=== PATIENT | female | born 1955 | race Caucasian/White ===

== ENCOUNTER 2021-09-15 15:13 | Inpatient (IN) | payer OTHER ==
[~2021-09-15] VITALS: Ht 160 cm; Wt 122.1 kg
[2021-09-15 15:15] VITALS: BP 132/60
[2021-09-15] MEDS ORDERED: SINGULAIR 10 MG10 M1 PO (16:59)
[2021-09-15] MEDS ORDERED: PREGABALIN25 MG PO (16:59)
[2021-09-15] MEDS ORDERED: CARVEDILOL6.25 M1 PO (17:00)
[2021-09-15] MEDS ORDERED: CETIRIZINE HCL10 MG PO (17:00)
[2021-09-15] MEDS ORDERED: FUROSEMIDE 20 M20 M1 PO (17:01)
[2021-09-15] MEDS ORDERED: DULOXETINE HCL60 MG PO (17:01)
[2021-09-15] MEDS ORDERED: LEVOTHYROXINE137 MCG PO (17:01)
[2021-09-15] MEDS ORDERED: POTASSIUM CHLO10 ME1 PO (17:02)
--- NOTE | 2021-09-15 17:03 | NUR ---
PT TO ED FOR SOA ONSET Y/D. PT SEES DR CRUZ AND HAD CXR DONE TODAY, HE SENT PT IN FOR ADMIT AND CT. PT DENIES CP. COVID VACCINATED. DENIES FEVER
[2021-09-15 17:06] LABS: ABSOLUTE NEUTROPHILS 10.8 thou/uL (1.4-8.2); BASOPHILS 0.9 % (0.0-2.0); EOSINOPHILS 0.1 % (0.0-3.0); HEMATOCRIT 38.8 % (37.0-47.0); HEMOGLOBIN 12.8 gm/dL (12.0-15.0); LYMPHOCYTES 11.1 % (24.0-44.0); MCHC 33.1 g/dL (28.0-37.0); MCV 96.7 fL (80.0-100.0); POLYS 83.9 % (36.0-66.0); RBC 4.01 mil/uL (4.20-5.00); RDW 13.6 % (10.5-14.5); WBC 12.9 thou/uL (4.0-11.0)
[2021-09-15 17:20] LABS: CALCIUM 9.1 mg/dL (8.5-10.1); CREATININE 0.8 mg/dL (0.6-1.0); POTASSIUM 4.2 mmol/L (3.5-5.1)
[2021-09-15 17:23] LABS: APTT 24.8 Seconds (24.5-32.8); D-DIMER 0.9 ug/mLFEU (0.19-0.50); INR 0.96; PROTIME 10.5 Seconds (10.5-12.1)
[2021-09-15 17:30] LABS: ALBUMIN 3.6 g/dL (3.4-5.0); TOTAL BILIRUBIN 0.6 mg/dL (0.2-1.0); TOTAL PROTEIN 7.3 g/dL (6.4-8.2)
[2021-09-15 17:42] LABS: PLATELET COUNT 299 thou/uL (150-400)
[2021-09-16 06:18] LABS: HEMATOCRIT 36.3 % (37.0-47.0); HEMOGLOBIN 12.3 gm/dL (12.0-15.0); MCH 32.7 pg (26.0-34.0); MCHC 33.8 g/dL (28.0-37.0); MCV 96.6 fL (80.0-100.0); RBC 3.76 mil/uL (4.20-5.00); RDW 13.7 % (10.5-14.5); WBC 8.5 thou/uL (4.0-11.0)
[2021-09-16 06:54] LABS: POTASSIUM 3.7 mmol/L (3.5-5.1)
--- NOTE | 2021-09-16 07:54 | NUR ---
RT AT BEDSIDE COMPLETING TX.
[2021-09-16 08:40] VITALS: BP 128/62
--- NOTE | 2021-09-16 10:03 | EKG ---
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 david : 1955 Requested By: Regino Ponce Order Number: [id number] MD: Sameer French Measurements Intervals [place] Rate: 80 P: 51 PA: 175 QRS: 47 QRSD: 103 T: 37 QT: 397 QTc: 458 Interpretive Statements Sinus rhythm RSR' in V1 or V2, right VCD Baseline wander in lead(s) V1,V3 No previous ECG available for comparison Electronically Signed On 09-16-2021 7:49:21 STEEL RIGGER by Sameer French [email or web address] <ELECTRONICALLY SIGNED> By: Sameer French MD, [facility] 09/16/21 0749 D: [id number] Sameer French MD, FACC /EPI
--- NOTE | 2021-09-16 14:12 | NUR ---
PT ADMITTED RELATED TO PNEUMONIA. CM REVIEWED CHART AND SPOKE WITH CARE TEAM. CM ATTEMTPED PC TO PT ON HER CELL PHONE BUT GOT VM. CM CALLED PT'S DTR LILA HANSEN . SHE INDICATED THAT HE MOM LIVES IN A HOUSE ALONE WITH 1 STEP TO ENTER AND FULL FLIGHT TO BASEMENT. DTR INDICATED THAT MOM HAD BEEN INDEPDNENT WITH GAIT AND [facility] SALES. HAS A CPAP FOR HOME USE. SEES JOB SPOTTER YU BECKWITH AND DR. PEPE. DTR INDICATED SHE ANTICIAPTES PT RETURNING HOME ONCE MEDICALLY STABLE. SHE INQUIRED ABOUT ASSISTANCE IN THE HOME (CLEANING). CM EXPLAINED HH COVERED BY INSURANCE HCBS HOMEMAKER SERVICES POSSIBLE THROUGH HER [place]OM[place] MEDICA[place] IF SHE QUALIFIES. CM INDICATED CM WOULD DISCUSS WITH PT AND COULD COMPLETE ONLINE REFERRAL FOR HCBS IF SHE IS AGREEABLE PRIOR TO DC. CM FOLLOWING REGARDING DC PLANNING.
--- NOTE | 2021-09-16 19:17 | NUR ---
RECIEVED REPORT FROM RN, ROUNDED ON PT AND ATTEMPTED TO INTRODUCE SELF, PT APPEARS TO BE RESTING QUIELTY IN BED, PT WAS NOT DISTURBED. THIS RN WILL ATTEMPT TO INTRODUCE SELF ON NEXT ROUNDING
[2021-09-16 22:58] VITALS: BP 116/64
[2021-09-16 23:18] VITALS: BP 124/51
[2021-09-17 03:04] VITALS: BP 117/74
--- NOTE | 2021-09-17 05:13 | NUR ---
ASSESSMENTS CHARTED, MEDS CHARTED GIVEN. PATIENT ARRIVED FROM ED HOLDING ONTO UNIT AT 23:20. SETTLED INTO ROOM PLACED ON TELEMETRY AND ADMITTED INTO SYSTEM. PATIENT REQUESTING A COUGH SUPPRESENT AND PAIN PILL. SPOKE WITH SHAY NIELSON PATIENT HAS ALREADY TRIED OUR OTHER COUGH SUPPRESENTS WITHOUT SUCCESS. SHE DID GIVE A PAIN MED. PATIENT WOULD LIKE THE COUGH SUPPRESENT AT NIGHT AND THE EXPECTORANT DURING THE DAY.
[2021-09-17 07:40] VITALS: BP 122/61
--- NOTE | 2021-09-17 11:13 | NUR ---
SPIRITUAL CARE CONSULT [id number] WAS COMPLETED BY THIS VICE CHAIRMAN. I FIRST MET THE THE PATIENT IN E.D. 170-6 ON 09/16/21. SHE WAS DOING MUCH BETTER TODAY IN CCU ON THE OXYGEN MASK.
[2021-09-17 11:15] VITALS: BP 146/82
--- NOTE | 2021-09-17 11:47 | NUR ---
RD consult received. Pt admit with pneumonia. Class III obesity, BMI 46.8. Hx COPD, +tobacco use. Upon visit, pt sleeping with CPAP mask so did not disturb. Has heart healthy diet ordered. Presents low nutrition risk.
[2021-09-17 15:45] VITALS: BP 120/71
--- NOTE | 2021-09-18 05:00 | NUR ---
ASSESSMENTS CHARTED, MEDS CHARTED GIVEN. PATIENT RESTING IN BED DURING SHIFT. PATIENT WANTING TO SLEEP DURING SHIFT. EXHAUSTED AND SORE FROM COUGHING. PATIENT WAS ABLE TO SLEEP MOST OF THE SHIFT WITH MINOR COUGHING JAGS. UP AT ZARINA IN ROOM. ABX AND STEROID THERAPY TO CONTINUE.
[2021-09-18 05:01] VITALS: BP 126/86
[2021-09-18 07:14] VITALS: BP 123/79
[2021-09-18 11:32] VITALS: BP 140/75
[2021-09-18 16:00] VITALS: BP 131/74
--- NOTE | 2021-09-18 16:44 | NUR ---
CHART REVIEWED AND DISCUSSED WITH CARE TEAM. SW SUBMITTING REFERRAL FOR HCBS PER PT REQUEST. DEPARTMENT OF HEALTH AND SERVICES ONCE RECEIVED THE REFERRAL WILL REACH OUT TO PT TO SCHEDULE IN HOME ASSESSMENT. NO FURTHER CM INTERVENTIONS INDICATED AT THIS TIME.
[2021-09-18 19:50] VITALS: BP 118/67
[2021-09-19 03:51] VITALS: BP 127/74
--- NOTE | 2021-09-19 07:24 | NUR ---
PATIENT CARES ASSUMED AT SHIFT CHANGE, PATIENT ASSESSED AND MEDS PASSED. PATIENT SPENT THE FIRST FOUR HOURS EATING SNACK FOOD. NURSING DID REDIRECTED HER THINKING FOR BED. PATIENT TUCKED IN WITH A HOT BLANKET, ROUNDS DONE. THE BED IS IN A LOW AND LOCKED POSITION.
[2021-09-19 07:39] LABS: MCH 32.3 pg (26.0-34.0); MCHC 33.5 g/dL (28.0-37.0); MCV 96.3 fL (80.0-100.0); RBC 3.74 mil/uL (4.20-5.00); WBC 10.3 thou/uL (4.0-11.0)
[2021-09-19 07:49] LABS: CALCIUM 9.2 mg/dL (8.5-10.1); CREATININE 0.9 mg/dL (0.6-1.0); POTASSIUM 4.6 mmol/L (3.5-5.1)
[2021-09-19 08:18] VITALS: BP 146/73
[2021-09-19 11:00] VITALS: BP 145/61
[2021-09-19 16:05] VITALS: BP 154/79
--- NOTE | 2021-09-19 16:36 | NUR ---
CHART REVIEWED AND DISCUSSED [facility] CARE TEAM. PT WILL DC WITH NO NEEDS. TO QUALITY FOR HOME O2 PT WILL NEED A EXER OX AND HAVE ROOM AIR O2 SAT LESS THAN 88% OR BELOW. SHOULD PT DISCHARGE OVER THE WEEKEND AND NEED OXYGEN PLEASE FAX FACE SHEET, O2 ORDER, AND EXER OX REPORT TO JAIRON AT [phone] PHONE NUMBER IS [phone]. PLEASE CALL [facility] TO PROVIDE PT WITH OXYGEN TANK FOR TRANSFER HOME.
[2021-09-19 20:15] VITALS: BP 148/86
[2021-09-20 04:20] VITALS: BP 127/68
--- NOTE | 2021-09-20 07:23 | NUR ---
SLEPT MOST OF SHIFT. WORKING ON GOALS AND PLAN OF CARE FOR NOC. UP AD ZARINA TO ROOM. MILD COUGH STATING IT IS BETTER.
[2021-09-20 07:30] VITALS: BP 138/74; BP 144/85
[2021-09-20 12:00] VITALS: BP 154/83
[2021-09-20 16:00] VITALS: BP 136/87
[2021-09-20 19:24] VITALS: BP 139/76
[2021-09-21 03:41] VITALS: BP 145/86
--- NOTE | 2021-09-21 06:00 | NUR ---
ASSESSMENTS CHARTED, MEDS CHARTED GIVEN. PATIENT RESTING IN BED DURING SHIFT. WEARING CPAP DURING NIGHT. UP AT ZARINA IN ROOM. COUGH IS PRODUCTIVE. CONTINUING CARE.
[2021-09-21 07:20] VITALS: BP 127/73
[2021-09-21] MEDS ORDERED: PREDNISONE 20 M20 M1 PO (10:20)
[2021-09-21] MEDS ORDERED: MUCINEX600 MG PO (10:20)
[2021-09-21] MEDS ORDERED: DALMANE15 MG PO (10:20)
[2021-09-21] MEDS ORDERED: CEFUROXIME500 MG PO (10:20)
[2021-09-21] MEDS ORDERED: IPRAT-ALBUT 0.5-3 ML INH (10:20)
[2021-09-21] MEDS ORDERED: HYDROCODONE-CH115 ML PO (10:20)
[2021-09-21] MEDS ORDERED: GUAIFENESIN DM S5 ML PO (10:20)
[2021-09-21] MEDS ORDERED: ACETAMINOPHEN325 M1 PO (10:20)
[2021-09-21 11:10] VITALS: BP 154/74
[2021-09-21 11:36] VITALS: BP 127/73
--- NOTE | 2021-09-21 13:04 | NUR ---
PATIENT HAS BEEN SAFELY DISCHARGED HOME WITH FAMILY. IV WAS REMOVED AND IN NO ACUTE DISTRESS.
== END 2021-09-21 14:31 | disposition home or self-care (01) | DRG 193 ==
LOC: ER 15:13 → EROBS 19:03 → 2N 19:03
PROVIDERS: Emergency Medicine; Nurse Practitioner Family; ADMIT Hospitalist; ATTEND Hospitalist
PROC: 5A09357 Assistance with Respiratory Ventilation, Less than 24 Consecutive Hours, Continuous Positive Airway Pressure (ICD-10-PCS; principal; 2021-09-16)
PROC: 5A09357 Assistance with Respiratory Ventilation, Less than 24 Consecutive Hours, Continuous Positive Airway Pressure (ICD-10-PCS; 2021-09-17)
PROC: 5A09357 Assistance with Respiratory Ventilation, Less than 24 Consecutive Hours, Continuous Positive Airway Pressure (ICD-10-PCS; 2021-09-18)
PROC: 5A09457 Assistance with Respiratory Ventilation, 24-96 Consecutive Hours, Continuous Positive Airway Pressure (ICD-10-PCS; 2021-09-19)
DX: J18.9 Pneumonia, unspecified organism (principal); J96.01 Acute respiratory failure with hypoxia; R65.11 Systemic inflammatory response syndrome (SIRS) of non-infectious origin with acute organ dysfunction; J44.1 Chronic obstructive pulmonary disease with (acute) exacerbation; J44.0 Chronic obstructive pulmonary disease with (acute) lower respiratory infection; Z68.42 Body mass index [BMI] 45.0-49.9, adult; E78.5 Hyperlipidemia, unspecified; G47.33 Obstructive sleep apnea (adult) (pediatric); Z20.822 Contact with and (suspected) exposure to COVID-19; F41.9 Anxiety disorder, unspecified; F32.9 Major depressive disorder, single episode, unspecified; M19.90 Unspecified osteoarthritis, unspecified site; E89.0 Postprocedural hypothyroidism; R91.1 Solitary pulmonary nodule; I10 Essential (primary) hypertension; E66.01 Morbid (severe) obesity due to excess calories; Z79.899 Other long term (current) drug therapy; Z28.21 Immunization not carried out because of patient refusal; Z85.850 Personal history of malignant neoplasm of thyroid; Z90.710 Acquired absence of both cervix and uterus; Z80.8 Family history of malignant neoplasm of other organs or systems
CPT/HCPCS: 10081

== ENCOUNTER → 2021-09-15 | Outpatient (CLI) | payer OTHER ==
[~2021-09-15] MED LIST: ACETAMINOPHEN325 M1 PO; CARVEDILOL6.25 M1 PO; CEFUROXIME500 MG PO; CETIRIZINE HCL10 MG PO; DALMANE15 MG PO; DULOXETINE HCL60 MG PO; FUROSEMIDE 20 M20 M1 PO; GUAIFENESIN DM S5 ML PO; HYDROCODONE-CH115 ML PO; IPRAT-ALBUT 0.5-3 ML INH; LEVOTHYROXINE137 MCG PO; MUCINEX600 MG PO; POTASSIUM CHLO10 ME1 PO; PREDNISONE 20 M20 M1 PO; PREGABALIN25 MG PO; SINGULAIR 10 MG10 M1 PO
== END ==
LOC: RAD 12:17
PROVIDERS: ATTEND Pediatrics
DX: R91.8 Other nonspecific abnormal finding of lung field (principal); I51.7 Cardiomegaly; R06.02 Shortness of breath

== ENCOUNTER 2021-10-06 11:38 | Emergency (ER) | payer OTHER ==
[~2021-10-06] VITALS: Ht 160 cm; Wt 122.5 kg
--- NOTE | 2021-10-06 12:26 | EKG ---
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: : 1955 Requested By: Wes Major Order Number: [id number] MD: Lloyd Delvalle Measurements Intervals [place] Rate: 79 P: 45 [place]: 174 QRS: 42 QRSD: 108 T: 41 QT: 403 QTc: 463 Interpretive Statements Sinus rhythm Abnormal inferior Q waves Compared to ECG 09/15/2021 17:25:10 Inferior Q waves now present Q waves now present Electronically Signed On 10-06-2021 12:26:40 MACHINE LEATHER TRIMMER by Lloyd Delvalle [email or web address] <ELECTRONICALLY SIGNED> By: Lloyd Delvalel MD, [facility] 10/06/21 1226 [id number] Lloyd Delvalle MD, FACC /EPI
[2021-10-06 12:31] LABS: ABSOLUTE NEUTROPHILS 4.9 thou/uL (1.4-8.2); EOSINOPHILS 2.7 % (0.0-3.0); HEMATOCRIT 37.2 % (37.0-47.0); HEMOGLOBIN 12.5 gm/dL (12.0-15.0); LYMPHOCYTES 22.8 % (24.0-44.0); MCH 32.2 pg (26.0-34.0); MCHC 33.6 g/dL (28.0-37.0); MCV 95.9 fL (80.0-100.0); MONOCYTES 7.8 % (1.0-8.0); PLATELET COUNT 211 thou/uL (150-400); POLYS 65.7 % (36.0-66.0); RBC 3.87 mil/uL (4.20-5.00); RDW 14.8 % (10.5-14.5); WBC 7.5 thou/uL (4.0-11.0)
[2021-10-06 12:48] LABS: CALCIUM 8.8 mg/dL (8.5-10.1); CREATININE 0.9 mg/dL (0.6-1.0); POTASSIUM 4.1 mmol/L (3.5-5.1)
[2021-10-06 12:54] LABS: TOTAL BILIRUBIN 0.4 mg/dL (0.2-1.0)
[2021-10-06 14:32] VITALS: BP 127/74
== END 2021-10-06 14:48 | disposition home or self-care (01) ==
LOC: ER 11:38
PROVIDERS: Physician Assistant
DX: R06.02 Shortness of breath (principal); Z20.822 Contact with and (suspected) exposure to COVID-19; I10 Essential (primary) hypertension; M19.90 Unspecified osteoarthritis, unspecified site; J44.9 Chronic obstructive pulmonary disease, unspecified; F32.9 Major depressive disorder, single episode, unspecified; E78.5 Hyperlipidemia, unspecified; Z79.891 Long term (current) use of opiate analgesic; Z90.89 Acquired absence of other organs; Z79.1 Long term (current) use of non-steroidal anti-inflammatories (NSAID); Z79.899 Other long term (current) drug therapy

== ENCOUNTER → 2021-10-20 | Outpatient (CLI) | payer OTHER | LOC: SJCVC 14:18 | PROVIDERS: ATTEND Internal Medicine Cardiovascular Disease | DX: Z01.810 Encounter for preprocedural cardiovascular examination (principal); I45.19 Other right bundle-branch block; R94.31 Abnormal electrocardiogram [ECG] [EKG]; R00.1 Bradycardia, unspecified; R07.89 Other chest pain; R06.00 Dyspnea, unspecified; I11.0 Hypertensive heart disease with heart failure; I50.9 Heart failure, unspecified; E78.00 Pure hypercholesterolemia, unspecified; E78.5 Hyperlipidemia, unspecified; G47.30 Sleep apnea, unspecified; F17.210 Nicotine dependence, cigarettes, uncomplicated; Z82.49 Family history of ischemic heart disease and other diseases of the circulatory system; Z79.82 Long term (current) use of aspirin; Z79.899 Other long term (current) drug therapy ==